=== PATIENT | female | born 1935 | race Hispanic/Latino ===

== ENCOUNTER 2018-08-29 11:17 | Inpatient (IN) ==
[2018-08-29 12:07] LABS: POC INR 1.8 (0.9-1.2); POC Pro Time 20.8 sec (11.9-14.5)
--- NOTE | 2018-08-29 12:08 | XRay Report ---
CLINICAL INFORMATION: Fall, hip pain COMPARISON: None. FINDINGS: A transcervical fracture seen through the right femoral neck. Moderate coxa vera angulation appreciated. Minimal displacement. Mild diffuse osteoporosis noted. Both hips are normal with alignment arthritic change. Mild bilateral SI degeneration noted. Soft tissues are normal IMPRESSION: Acute transcervical fracture - right hip with coxa vera angulation Interpreted and Authenticated by: Valentin Richard 08/29/18
--- NOTE | 2018-08-29 12:10 | XRay Report ---
CLINICAL INFORMATION: Fractured hip COMPARISON: None. FINDINGS: Heart is mildly enlarged. Mediastinum and pulmonary vessels are normal. The lungs are clear. No effusions. IMPRESSION: Mild cardiomegaly - no acute disease Interpreted and Authenticated by: Valentin Richard 08/29/18
--- NOTE | 2018-08-29 12:16 | Cat Scan Report ---
CLINICAL INFORMATION: Prominent fall. Patient on anticoagulation COMPARISON: None. TECHNIQUE: 2.5 mm helical slices were obtained in the skull base to vertex. Following reconstruction, axial reformatted images were reviewed at bone and parenchymal windows. The exam was performed using radiation dose optimization techniques including, but not limited to, automated exposure control, adjustment of the mA and/or kV according to patient size and use of iterative reconstruction technique. FINDINGS: The ventricles, sulci, fissures, and cisterns are symmetrically enlarged compatible with mild age-related atrophy - no subdural hemorrhage or extra-axial fluid collection appreciated. Moderate patchy chronic ischemic changes in the the cerebral white matter are expected for age. There is no intracerebral hemorrhage, mass effect or edema. Bone windows show no fracture or other osseous abnormality. IMPRESSION: Mild atrophy and chronic ischemic changes in deep cerebral white matter - expected for age. No posttraumatic change. Interpreted and Authenticated by: Valentin Richard 08/29/18
--- NOTE | 2018-08-29 12:23 | XRay Report ---
CLINICAL INFORMATION: R/elbow pain, Fall COMPARISON: None. FINDINGS: There is distention of the anterior and posterior extrasynovial fat pads compatible posttraumatic hemarthrosis. This is typically seen with occult fractures. No fracture line identified. Elbow joint normal with alignment IMPRESSION: Moderate posttraumatic hemarthrosis typically associated with an occult fracture. Suggest immobilization and repeat film in 10 days Interpreted and Authenticated by: Valentin Richard 08/29/18
[2018-08-29 12:33] LABS: Basophils # (Auto) 0 K/mcL (0.0-0.3); Basophils % (Auto) 0.3 % (0.0-2.0); Eosinophils # (Auto) 0.3 K/mcL (0.0-0.7); Granulocytes % (Auto) 73.8 % (38.0-78.0); Hemoglobin 11.8 g/dL (12.0-15.0); Lymphocytes # (Auto) 1.4 K/mcL (1.5-4.8); Lymphocytes % (Auto) 15.9 % (15.5-49.0); Mean Cell Volume 93.8 fL (80.0-100.0); Mean Corpuscular HGB Conc 32.7 g/dL (31.0-36.0); Monocytes # (Auto) 0.6 K/mcL (0.1-0.9); Platelet Count 255 K/mcL (140-440); RBC 3.83 M/mcL (4.00-5.20); Red Cell Distribution Width 14.2 % (11.5-14.5)
[2018-08-29] MEDS ORDERED: ONDANSETRON 4 MG/2 ML VIAL IV ONE ×2 (12:44→17:10)
--- NOTE | 2018-08-29 12:48 | Emergency Department Note ---
Fall HPI - General Chief Complaint: Fall Stated Complaint: Fall Time Seen by Provider: 08/29/18 12:31 Source: patient, family, EMS Mode of arrival: EMS Limitations: physical limitation - History of Present Illness HPI Narrative: 80-year-old female in ED with fall causing right hip pain. EMS brought patient in and advised she tripped over a small step landing on her right hip and she has bilateral rotation 9/10 pain, they provided her 75 g of fentanyl which decreased pain to 6/10. Patient does have a history of A. fib and is on diltiazem and Coumadin and vitamins at times. Patient did hit her head without loss of consciousness. She has no neck pain, no back pain and pedal pulses. Patient advises bowel or bladders have been per her normal, no upper respiratory symptoms, no chest pain, no shortness of breath. Patient is visiting from [place] and was on [employer]e ship. Patient ate breakfast at 7:30 fruit and eggs. Patient has had past surgeries left total knee and right shoulder. MD Complaint: fall Onset (ago): minute(s) (30) Fall From: standing Fall Witnessed: yes, by family Place Fall Occurred: other Loss of Consciousness: none Prolonged Down Time?: yes (due to unable to get up) Symptoms Prior to Fall: none Context: tripped/slipped Location of injury: other (hip right) Severity: severe Severity scale (1-10): 9 Quality: sharp, dull, aching Associated symptoms (after fall): Reports: denies - Related Data Home Medications Medication Instructions Recorded Confirmed Diltiazem HCl [Diltiazem 24Hr ER] 180 mg PO DAILY 08/29/18 08/29/18 Warfarin [Coumadin] 4 mg PO DAILY 08/29/18 08/29/18 Previous Rx's Medication Instructions Recorded Acetaminophen [Tylenol] 650 mg PO Q4-6HP PRN tab 09/01/18 Benzocaine/Menthol [Cepacol] 1 kristine PO PRN PRN kristine 09/01/18 Bisacodyl [Dulcolax] [address] Q2-3DAYS PRN supp.rect 09/01/18 Cephalexin [Keflex] 500 mg PO BID #6 cap 09/01/18 HYDROcodone/APAP 5/325MG [[place] 1 tab PO Q4HP PRN #40 tab 09/01/18 5-325Mg] Methocarbamol [Robaxin] 500 mg PO Q6HP PRN #25 tab 09/01/18 Allergies Allergy/AdvReac Type Severity Reaction Status Date / Time No Known Drug Allergies Allergy Verified 08/29/18 11:19 Review of Systems All systems ED: reviewed and negative except as stated. Fall PMH - Past Medical History Medical history: Reports: atrial fibrillation Surgical history ED: Reports: orthopedic, other (left total knee, right shoulder) Psychiatric history: Reports: no psych history - Social History smoking status: Never smoker Drug use: Reports: none Physical Exam Limitations: physical limitation General appearance: alert, in no apparent distress Head: atraumatic, normocephalic, normal inspection Eye: Present: normal appearance, PERRL, EOMI. Absent: conjunctival injection ENT: normal oropharynx, mucous membranes moist, TM's normal bilaterally, normal external ear exam Neck: Present: normal inspection, full ROM, trachea midline. Absent: tenderness, lymphadenopathy Chest: Present: normal inspection, symmetric chest wall rise. Absent: tenderness Respiratory: Present: normal lung sounds bilaterally. Absent: respiratory distress, rales/crackles, wheezes Cardiovascular: Present: irregular rhythm. Absent: systolic murmur, diastolic murmur Abdominal: Present: soft, normal bowel sounds. Absent: distention, tenderness, guarding, rebound, rigidity Extremities: Present: normal capillary refill. Absent: pedal edema Hip/Pelvis: Present: tenderness (right), ecchymosis ( right), external rotation (right), shortening (right) Neurovascular/Tendon: Present: normal capillary refill Neurological: Present: alert, oriented X3. Absent: normal gait Psychiatric: Present: normal affect, normal mood. Absent: depressed, agitated, anxious, flat affect Skin: Present: warm, dry, intact, normal color. Absent: cool, diaphoretic Course Vital Signs Temperature 98.9 F 08/29/18 11:20 Pulse Rate 70 08/29/18 11:20 Respiratory Rate 18 08/29/18 11:20 Blood Pressure 193/88 08/29/18 11:20 Pulse Oximetry (%) 97 08/29/18 11:20 Temperature 98.4 F 09/01/18 14:55 Pulse Rate 68 09/01/18 14:55 Respiratory Rate 16 09/01/18 14:55 Blood Pressure 102/59 09/01/18 14:55 Pulse Oximetry (%) 95 09/01/18 14:55 Fall - MDM Narrative Medical decision making narrative: Patient has received 1 L normal saline, 4 mg Zofran, 1 mg Dilaudid, Henson catheter was placed. consulted with who advised he would do the surgery and requested to have hospitalist admit. Consulted with Dr. Marcus who accepted patient. - Lab Data Lab results reviewed: Yes I reviewed the patient's lab results. Result diagrams: 09/01/18 04:05 09/01/18 04:05 Lab Results 08/29/18 08/29/18 08/29/18 Range/Units 12:01 12:01 12:01 WBC 9.0 (4.5-11.0) K/mcL RBC 3.83 L (4.00-5.20) M/mcL Hgb 11.8 L (12.0-15.0) g/dL Hct 36.0 (36.0-48.0) % MCV 93.8 (80.0-100.0) fL MCH 30.6 (26.0-34.0) pg MCHC 32.7 (31.0-36.0) g/dL RDW 14.2 (11.5-14.5) % Plt Count 255 (140-440) K/mcL MPV 9.0 (7.4-10.4) fL Gran % 73.8 (38.0-78.0) % Lymph % (Auto) 15.9 (15.5-49.0) % [place] % (Auto) 7.0 (1.0-12.0) % Eos % (Auto) 3.0 (0.0-7.0) % Baso % (Auto) 0.3 (0.0-2.0) % Gran # 6.6 (1.8-8.0) K/mcL Lymph # (Auto) 1.4 L (1.5-4.8) K/mcL [place] # (Auto) 0.6 (0.1-0.9) K/mcL Eos # (Auto) 0.3 (0.0-0.7) K/mcL Baso # (Auto) 0 (0.0-0.3) K/mcL POC PT 20.8 H (11.9-14.5) sec POC INR 1.8 H (0.9-1.2) Sodium 138 (133-145) mmol/L Potassium 4.4 (3.3-5.1) mmol/L Chloride 100 (96-108) mmol/L Carbon Dioxide 25 (22-30) mmol/L Anion Gap 13.0 (8-16) BUN 25 H (8-23) mg/dl Creatinine 0.8 (0.6-1.1) mg/dl GFR Calculation 69 Glucose 138 H (70-105) mg/dL Calcium 8.8 (8.6-10.4) mg/dl Total Bilirubin 0.3 (0.0-1.0) mg/dL AST 24 (0-37) U/l ALT 19 (0-40) U/l Alkaline Phosphatase 65 (39-117) U/L Total Protein 7.6 (5.9-8.4) gm/dL Albumin 4.1 (3.2-5.2) gm/dL Globulin 3.5 (2.2-3.7) gm/dL Albumin/Globulin Ratio 1.2 (1.0-2.3) Urine Color Urine Appearance Urine pH (5.0-9.0) Ur Specific [place] (1.000-1.035) Urine Protein (NEG) mg/dL Urine Glucose (UA) (NEG) mg/dL Urine Ketones (NEG) mg/dL Urine Occult Blood (<0.03) mg/dL Urine Nitrate (NEG) Urine Bilirubin (NEG) mg/dL Urine Urobilinogen (NEG) mg/dL Ur Leukocyte Esterase (NEG) /uL Urine RBC (0-1) /hpf Urine WBC (0-4) /hpf Ur Squamous Epith Cells (0-4) /hpf Ur Transition Epith Cell (0-2) /hpf Urine Bacteria (0) /hpf Ur Culture Indicated? 08/29/18 Range/Units 12:55 WBC (4.5-11.0) K/mcL RBC (4.00-5.20) M/mcL Hgb (12.0-15.0) g/dL Hct (36.0-48.0) % MCV (80.0-100.0) fL MCH (26.0-34.0) pg MCHC (31.0-36.0) g/dL RDW (11.5-14.5) % Plt Count (140-440) K/mcL MPV (7.4-10.4) fL Gran % (38.0-78.0) % Lymph % (Auto) (15.5-49.0) % [place]cl[place] % (Auto) (1.0-12.0) % Eos % (Auto) (0.0-7.0) % Baso % (Auto) (0.0-2.0) % Gran # (1.8-8.0) K/mcL Lymph # (Auto) (1.5-4.8) K/mcL [place] # (Auto) (0.1-0.9) K/mcL Eos # (Auto) (0.0-0.7) K/mcL Baso # (Auto) (0.0-0.3) K/mcL POC PT (11.9-14.5) sec POC INR (0.9-1.2) Sodium (133-145) mmol/L Potassium (3.3-5.1) mmol/L Chloride (96-108) mmol/L Carbon Dioxide (22-30) mmol/L Anion Gap (8-16) BUN (8-23) mg/dl Creatinine (0.6-1.1) mg/dl GFR Calculation Glucose (70-105) mg/dL Calcium (8.6-10.4) mg/dl Total Bilirubin (0.0-1.0) mg/dL AST (0-37) U/l ALT (0-40) U/l Alkaline Phosphatase (39-117) U/L Total Protein (5.9-8.4) gm/dL Albumin (3.2-5.2) gm/dL Globulin (2.2-3.7) gm/dL Albumin/Globulin Ratio (1.0-2.3) Urine Color Yellow Urine Appearance Clear Urine pH 8.0 (5.0-9.0) Ur Specific [place] 1.011 (1.000-1.035) Urine Protein 30 A (NEG) mg/dL Urine Glucose (UA) Negative (NEG) mg/dL Urine Ketones Neg (NEG) mg/dL Urine Occult Blood Neg (<0.03) mg/dL Urine Nitrate Pos A (NEG) Urine Bilirubin Neg (NEG) mg/dL Urine Urobilinogen Neg (NEG) mg/dL Ur Leukocyte Esterase Neg (NEG) /uL Urine RBC 1 (0-1) /hpf Urine WBC 5 H (0-4) /hpf Ur Squamous Epith Cells < 1 (0-4) /hpf Ur Transition Epith Cell < 1 (0-2) /hpf Urine Bacteria 0 (0) /hpf Ur Culture Indicated? No - Radiology Data Radiology results reviewed: Yes I reviewed the patient's radiology results. Date of Service: 08/29/18 Procedure(s): CT head/brain wo con Accession Number(s): [id number] CLINICAL INFORMATION: Prominent fall. Patient on anticoagulation COMPARISON: None. TECHNIQUE: 2.5 mm helical slices were obtained in the skull base to vertex. Following reconstruction, axial reformatted images were reviewed at bone and parenchymal windows. The exam was performed using radiation dose optimization techniques including, but not limited to, automated exposure control, adjustment of the mA and/or kV according to patient size and use of iterative reconstruction technique. FINDINGS: The ventricles, sulci, fissures, and cisterns are symmetrically enlarged compatible with mild age-related atrophy - no subdural hemorrhage or extra-axial fluid collection appreciated. Moderate patchy chronic ischemic changes in the the cerebral white matter are expected for age. There is no intracerebral hemorrhage, mass effect or edema. Bone windows show no fracture or other osseous abnormality. IMPRESSION: Mild atrophy and chronic ischemic changes in deep cerebral white matter - expected for age. No posttraumatic change. Interpreted and Authenticated by: Valentin Richard 08/29/18 Date of Service: 08/29/18 Procedure(s): XR chest 1V portable Accession Number(s): [id number] CLINICAL INFORMATION: Fractured hip COMPARISON: None. FINDINGS: Heart is mildly enlarged. Mediastinum and pulmonary vessels are normal. The lungs are clear. No effusions. IMPRESSION: Mild cardiomegaly - no acute disease Interpreted and Authenticated by: Valentin Richard 08/29/18 05 05 Technical Intern: <Electronically signed by Valentin Richard M.D. in OV> 08/29/18 1207 Date of Service: 08/29/18 Procedure(s): XR elbow RT limited 2VW Accession Number(s): [id number] CLINICAL INFORMATION: R/elbow pain, Fall COMPARISON: None. FINDINGS: There is distention of the anterior and posterior extrasynovial fat pads compatible posttraumatic hemarthrosis. This is typically seen with occult fractures. No fracture line identified. Elbow joint normal with alignment IMPRESSION: Moderate posttraumatic hemarthrosis typically associated with an occult fracture. Suggest immobilization and repeat film in 10 days Interpreted and Authenticated by: Valentin Richard 08/29/18 1218 1218 Technical Intern: <Electronically signed by Valentin Richard M.D. in OV> 08/29/18 1220 Date of Service: 08/29/18 Procedure(s): XR hip RT comp 2VW Accession Number(s): [id number] CLINICAL INFORMATION: Fall, hip pain COMPARISON: None. FINDINGS: A transcervical fracture seen through the right femoral neck. Moderate coxa vera angulation appreciated. Minimal displacement. Mild diffuse osteoporosis noted. Both hips are normal with alignment arthritic change. Mild bilateral SI degeneration noted. Soft tissues are normal IMPRESSION: Acute transcervical fracture - right hip with coxa vera angulation Interpreted and Authenticated by: Valentin Richard 08/29/18 1202 1202 Technical Intern: <Electronically signed by Valentin Richard M.D. 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
[2018-08-29 12:52] LABS: ALT/SGPT 19 U/l (0-40); AST/SGOT 24 U/l (0-37); Albumin 4.1 gm/dL (3.2-5.2); Albumin/Globulin Ratio 1.2 (1.0-2.3); Alkaline Phosphatase 65 U/L (39-117); Bilirubin,Total 0.3 mg/dL (0.0-1.0); Blood Urea Nitrogen 25 mg/dl (8-23); Calcium 8.8 mg/dl (8.6-10.4); Carbon Dioxide 25 mmol/L (22-30); Chloride 100 mmol/L (96-108); Globulin 3.5 gm/dL (2.2-3.7); Glomerular Filtration Rate 69; Glucose 138 mg/dL (70-105); Potassium 4.4 mmol/L (3.3-5.1); Sodium 138 mmol/L (133-145)
[2018-08-29] MEDS: HYDROmorphone 2 MG/ML VIAL IV PRN ×2 (12:57→14:20)
[2018-08-29 13:28] LABS: Appearance,Urine CLEAR; Bacteria,Urine 0 /hpf (0); Bilirubin,Urine NEG (NEG); Color,Urine YELLOW; Culture Indicated,Urine NO; Glucose,Urine (UA) NEGATIVE (NEG); Ketones,Urine NEG (NEG); Leukocyte Esterase,Urine NEG /uL (NEG); Nitrate,Urine POS (NEG); Protein,Urine 30 mg/dL (NEG); Specific Gravity,Urine 1.011 (1.000-1.035); Urine Blood NEG mg/dL (<0.03); Urine RBC 1 /hpf (0-1); Urine Squamous Epithelial Cell < 1 /hpf (0-4); Urine Transitional Epi Cells < 1 /hpf (0-2); Urine WBC 5 /hpf (0-4); Urobilinogen,Urine NEG (NEG)
--- NOTE | 2018-08-29 13:44 | Internal Med History&Physical ---
Medical - H&P: [facility] Patient information: Note initiated : 08/29/18 at 1:40 pm Service Date, if different from initiated Date: [] Patient: Emi Grissom a 80 y/o F admitted on for Fall. Chief Complaint: [] Chief complaint: Right hip pain History of present illness: Ms. Grissom is a 80 year old F was visiting [place] on a cruise when she tripped and bathroom and fell sustaining injury to her right hip. Initial evaluation in the ER revealed right hip fracture. Dr. Nash orthopedics were consulted and requested hospitalist service to admit patient while patient will undergo operative intervention later this evening. Initial work-up in the ER was essentially unremarkable. At the time of evaluation patient is accompanied with her friend Jourdan. She is able to answer most of the questions. She denies lightheadedness dizziness, chest pain or unilateral weakness. She attributes fall to tripping and getting off balance. She denies loss of consciousness. She denies prior similar episodes or falls. She appears very anxious and in pain. She endorses to history of atrial fi brillation but denies history of coronary artery disease, CVA, diabetes or hypertension. She has been fairly healthy and avid skier until she had a left knee replaced. Review of systems A 10 point review of system was performed and is negative except was discussed above Medical - H&P: PMH Medical history: History of atrial fibrillation Anticoagulation on Coumadin Surgical history: Left knee replacement Right shoulder replacement Pertinent family history: CAD father and mother at age 69/61 respectively Social history: Denies smoking or alcoholism Retired and lives in [place] Medical - H&P: Meds Home Medications Medication Instructions Recorded Confirmed Type Diltiazem HCl [Diltiazem ER] 180 mg PO DAILY 08/29/18 08/29/18 History Warfarin [Coumadin] 4 mg PO DAILY 08/29/18 08/29/18 History Allergies Allergy/AdvReac Type Severity Reaction Status Date / Time No Known Drug Allergies Allergy Verified 08/29/18 11:19 Medical - H&P: Exam - Constitutional Vitals: Temp Pulse Resp BP Pulse Ox 98.9 F 81 18 195/78 98 08/29/18 11:20 08/29/18 11:32 08/29/18 11:20 08/29/18 11:32 08/29/18 11:32 General appearance: average body habitus Exam: Alert and oriented and anxious Pupils symmetric oral cavity dry No ear nose discharge Head normocephalic Neck no lymph apathy S1-S2 irregular rhythm, no murmur appreciated Diminished breath sounds bases Abdomen soft nontender Right lower extremity rotated and shortened No joint swelling erythema Skin no suspicious lesion Psych alert cooperative but anxious Neuro nonfocal Medical - H&P: Reslt - Labs CBC & Chem 7: 08/29/18 12:01 08/29/18 12:01 Labs: Short CBC 08/29/18 Range/Units 12:01 WBC 9.0 (4.5-11.0) K/mcL Hgb 11.8 L (12.0-15.0) g/dL Hct 36.0 (36.0-48.0) % Plt Count 255 (140-440) K/mcL BMP 08/29/18 12:01 Sodium 138 Potassium 4.4 Chloride 100 Carbon Dioxide 25 BUN 25 H Creatinine 0.8 Glucose 138 H Calcium 8.8 Liver Function 08/29/18 Range/Units 12:01 Total Bilirubin 0.3 (0.0-1.0) mg/dL AST 24 (0-37) U/l ALT 19 (0-40) U/l Alkaline Phosphatase 65 (39-117) U/L Albumin 4.1 (3.2-5.2) gm/dL Urine 08/29/18 Range/Units 12:55 Urine Color Yellow Urine Appearance Clear Urine pH 8.0 (5.0-9.0) Ur Specific [place] 1.011 (1.000-1.035) Urine Protein 30 A (NEG) mg/dL Urine Glucose (UA) Negative (NEG) mg/dL Medical - H&P: A/P (1) Closed right hip fracture Current visit: Yes Status: Acute * Right hip fracture-inpatient admission/orthopedic consultation for operative intervention. * Pain management continue as needed opioids * Preoperative risk evaluation-based on RCRI [place] [employer] risk stratification patient would be high risk intraoperative/immediate postoperative CVA/ACS in the setting of advanced age however she does not have a history of chronic kidney disease/FL/CHF/CVA or insulin-dependent diabetes. She has a fair baseline functional status with a metabolic equivalent of 5. Surgery and anesthesia specific risks will be addressed by individual care providers. At this time there is no modifiable risk factor and patient may proceed with surgery. Recommend maintaining map during surgery over 65 * History of atrial fibrillation rate controlled on diltiazem. * Anticoagulation for CVA prophylaxis- at this time will be held and will be resumed postoperatively. Current INR 1.8 * Full code Plan * Inpatient admission * Orthopedic consult * Pain management * Hold anticoagulation until surgery
[2018-08-29] MEDS ORDERED: ONDANSETRON 4 MG/2 ML VIAL IV PRN ×5 (14:56→19:48)
[2018-08-29] MEDS ORDERED: HYDROmorphone 2 MG/ML VIAL IV PRN ×2 (14:57→18:05)
[2018-08-29] MEDS ORDERED: 0.9 % SODIUM CHLORIDE 1,000 ML IV SCH ×3 (15:00→19:48)
[2018-08-29] MEDS ORDERED: ACETAMINOPHEN 325 MG TABLET PO PRN ×2 (15:53→19:48)
[2018-08-29] MEDS ORDERED: ACETAMINOPHEN 900 MG/90 ML BOTTLE IV PRN ×2 (15:53→19:48)
[2018-08-29] MEDS ORDERED: HYDROcodone/APAP 5/325MG TABLET PO PRN (15:53)
[2018-08-29] MEDS ORDERED: ceFAZolin 1 GM VIAL IV SCH ×2 (16:15→19:00)
[2018-08-29] MEDS ORDERED: ceFAZolin 2 GM in DEXTROSE 5% IN WATER 50 ML IV SCH (16:15)
--- NOTE | 2018-08-29 16:29 | Consultation ---
DATE OF CONSULTATION: 08/29/2018 REASON FOR CONSULTATION: Right hip fracture. CONSULTING PROVIDER: Adria Marcus M.D. HISTORY OF PRESENT ILLNESS: The patient is an 80-year-old female [place] she fell in the bathroom which resulted in an injury to her right side. She was transported to the emergency department here at [facility] and found to have a right hip fracture. She also had a CT scan of her head which was negative for any acute trauma. The patient only complains of right hip pain and some right knee pain. She feels nauseous from the medication as well. PAST MEDICAL HISTORY: Significant for atrial fibrillation which she is on Coumadin for. PAST SURGICAL HISTORY: She had a left total knee arthroplasty, right total shoulder arthroplasty. ALLERGIES: No known drug allergies. MEDICATIONS: 1. Coumadin. 2. Diltiazem. SOCIAL HISTORY: She resides by herself in [place], [place]. She does have a sister that lives next door, however, she is not healthy. Nontobacco user. REVIEW OF SYSTEMS: A 10-point review of systems otherwise negative as mentioned in HPI. PHYSICAL EXAMINATION: VITAL SIGNS: She is afebrile with 98.9, heart rate 89, blood pressure is 181/75. She is satting 91% on room air. HEAD: Atraumatic. EXTREMITIES: Bilateral upper extremities, left lower extremity are atraumatic. She has no tenderness to palpation about the extremities. They are all warm and perfused and neurovascularly intact. Right lower extremity: hip range of motion was deferred. Her skin is intact with small echymossis over lateral hip. She has no focal tenderness about her knee. She has some dependent edema about the right lower extremity which patient reports has been present for a while now. Her sensation is intact in that extremity, as well as able to plantarflex and dorsiflex the ankle and flex and extend all digits. IMAGING: She has imaging to include imaging of her right hip and AP pelvis demonstrating a complete displaced femoral neck fracture. She does have some peripheral vascular disease also noted with minimal underlying arthritis of the hip joint itself. She had a chest x-ray as well as a CT of her head which is negative for any acute trauma. LABORATORY DATA: Her white count is 9. Her hemoglobin is 11.8. Her hematocrit is 36.0. Her INR is 1.8. Her BUN is 25 and creatinine 0.8, and glucose is 138. ASSESSMENT AND PLAN: This is an 80-year-old female with a right displaced femoral neck fracture. I discussed treatment options with her and recommendation being for a right hip hemiarthroplasty. I discussed admitting her with the hospitalist who sees that she is increased risk patient for surgery. However, there is no modifiable risk factors at this time, and it is okay to proceed with surgery. I discussed the risks of the surgery with her, as well as the procedure and recovery which will be a little more difficult given that she resides in [place] and by herself. She understands her options and does want to proceed with surgery. Plan will be for right hip hemiarthroplasty. DLLily:malachi Job ID: [id number] Doc ID: [id number] Maday Nash MD MTDD
[2018-08-29] MEDS ORDERED: SCOPOLAMINE 1 PATCH PATCH TOPICAL ONE (16:46)
[2018-08-29] MEDS ORDERED: PROPOFOL 200 MG/20 ML VIAL IV ONE (17:10)
[2018-08-29] MEDS ORDERED: TRANEXAMIC ACID 1,000 MG/10 ML VIAL IV ONE (17:10)
[2018-08-29] MEDS ORDERED: GLYCOPYRROLATE 0.2 MG/ML VIAL IV ONE (17:10)
[2018-08-29] MEDS ORDERED: MIDAZOLAM 2 MG/2 ML VIAL IV ONE (17:10)
[2018-08-29] MEDS ORDERED: ROPIVACAINE HCL/PF 30 ML VIAL IJ ONE (17:10)
[2018-08-29] MEDS ORDERED: KETAMINE 100 MG/ML ML IV ONE (17:10)
[2018-08-29] MEDS ORDERED: LIDOCAINE HCL/PF 100 MG/5 ML SYRINGE IV ONE (17:10)
[2018-08-29] MEDS ORDERED: fentaNYL 100 MCG/2 ML VIAL IV ONE (17:10)
--- NOTE | 2018-08-29 17:45 | Emergency Department Note ---
ED Note Addendum Note Addendum: I discussed this case with the mid-level provider and agree with the assessment and plan.
[2018-08-29] MEDS ORDERED: GENTAMICIN SULFATE 800 MG/20 ML VIAL IR ONE (17:50)
[2018-08-29] MEDS ORDERED: fentaNYL 100 MCG/2 ML VIAL IV PRN (18:05)
[2018-08-29] MEDS ORDERED: MEPERIDINE 25 MG/ML SYRINGE IV PRN (18:05)
[2018-08-29] MEDS ORDERED: IPRATROPIUM/ALBUTEROL 3 ML AMPUL.NEB NEB PRN (18:05)
[2018-08-29] MEDS ORDERED: METHOCARBAMOL 1,000 MG/10 ML VIAL IV PRN (18:05)
[2018-08-29] MEDS ORDERED: ACETAMINOPHEN 1,000 MG/100 ML BOTTLE IV ONE (18:05)
[2018-08-29] MEDS ORDERED: LACTATED RINGERS 1,000 ML IV SCH ×3 (18:15→19:48)
--- NOTE | 2018-08-29 18:35 | Brief Operative Note ---
Date of procedure: 08/29/18 Pre-op diagnosis: right displaced femoral neck fracture Post-op diagnosis: same Procedure: right hip nataliia arthroplasty Grafts/Implants: Yes (depuy cemented stem size 5, head 48, standard neck, 0 insert) Anesthesia: GLMA Findings: displaced femoral neck fracture Complications: none Surgeon: Maday Nash Linker Up: Lenoard Del Angel Estimated blood loss (cc): 150 Tourniquet Time (Minutes): 0 Specimens Removed/Pathology: none sent Condition: stable Disposition: PACU
[2018-08-29] MEDS ORDERED: BENZOCAINE/MENTHOL 1 LOZENGE PO PRN ×2 (18:48→19:48)
[2018-08-29] MEDS ORDERED: FLEETS ADULT ENEMA PR PRN ×2 (18:48→19:48)
[2018-08-29] MEDS ORDERED: POLYETHYLENE GLYCOL 3350 17 GM PACKET PO PRN (18:48)
[2018-08-29] MEDS ORDERED: METHOCARBAMOL 750 MG TABLET PO PRN (18:48)
[2018-08-29] MEDS ORDERED: BISACODYL 10 MG SUPP.RECT PR PRN ×2 (18:48→19:48)
[2018-08-29] MEDS ORDERED: MAGNESIUM HYDROXIDE 30 ML ORAL.SUSP PO PRN ×2 (18:48→19:48)
[2018-08-29] MEDS ORDERED: METOPROLOL TARTRATE 5 MG/5 ML VIAL IV ONE (19:03)
[2018-08-29] MEDS: METOPROLOL TARTRATE 5 MG/5 ML VIAL IV SCH ×3 (19:06→23:30)
--- NOTE | 2018-08-29 19:42 | XRay Report ---
CLINICAL INFORMATION: Follow-up right hip fracture COMPARISON: Preoperative films 08/29/2018 FINDINGS: Right hip prostheses is anatomically aligned. No osseous abnormality. Soft tissue swelling over the surgical site as expected. IMPRESSION: Negative Interpreted and Authenticated by: Valentin Richard 08/29/18
[2018-08-29] MEDS ORDERED: METHOCARBAMOL 500 MG TABLET PO PRN (19:48)
[2018-08-29] MEDS: LACTATED RINGERS 1,000 ML IV SCH (20:02)
[2018-08-29] MEDS ORDERED: SENNOSIDES/DOCUSATE SODIUM 1 TAB TABLET PO SCH (21:00)
[2018-08-29] MEDS ORDERED: SENNOSIDES 1 TABLET PO SCH (21:00)
[2018-08-29] MEDS ORDERED: WARFARIN 4 MG TABLET PO ONE (21:00)
[2018-08-29] MEDS ORDERED: MELATONIN 3 MG TABLET PO PRN (21:00)
[2018-08-29] MEDS ORDERED: DOCUSATE SODIUM 100 MG CAPSULE PO SCH (21:00)
[2018-08-29] MEDS: SENNOSIDES 1 TABLET PO SCH (21:05)
[2018-08-29] MEDS: DOCUSATE SODIUM 100 MG CAPSULE PO SCH (21:05)
[2018-08-29] MEDS: SENNOSIDES/DOCUSATE SODIUM 1 TAB TABLET PO SCH (21:05)
[2018-08-29] MEDS ORDERED: 0.9 % SODIUM CHLORIDE 10 ML SYRINGE IV SCH (22:00)
[2018-08-29] MEDS: 0.9 % SODIUM CHLORIDE 10 ML SYRINGE IV SCH (22:14)
[2018-08-29] MEDS: HYDROcodone/APAP 5/325MG TABLET PO PRN (22:32)
[2018-08-29] MEDS ORDERED: 0.9 % SODIUM CHLORIDE 250 ML IV SCH (23:45)
[2018-08-29] MEDS ORDERED: DILTIAZEM HCL 180 MG PO SCH (23:56)
[2018-08-30] MEDS ORDERED: hydrALAZINE 20 MG/ML VIAL IV SCH
[2018-08-30] MEDS: ceFAZolin 1 GM VIAL IV SCH ×2 (01:15→08:43)
[2018-08-30] MEDS ORDERED: DILTIAZEM 180 MG CAP.XL.24H PO ONE (01:32)
[2018-08-30] MEDS: 0.9 % SODIUM CHLORIDE 10 ML SYRINGE IV SCH ×3 (04:51→22:14)
[2018-08-30] MEDS: HYDROcodone/APAP 5/325MG TABLET PO PRN ×4 (05:58→21:18)
[2018-08-30] MEDS: LACTATED RINGERS 1,000 ML IV SCH (07:09)
[2018-08-30] MEDS: DILTIAZEM 180 MG CAP.XL.24H PO SCH (08:42)
[2018-08-30] MEDS: DOCUSATE SODIUM 100 MG CAPSULE PO SCH ×2 (08:42→21:17)
[2018-08-30] MEDS: MULTIVIT,THER IRON,CA,FA & MIN 1 TABLET PO SCH (08:43)
[2018-08-30 08:47] LABS: Hematocrit 29.7 % (36.0-48.0); Hemoglobin 9.9 g/dL (12.0-15.0); Mean Cell Volume 92.7 fL (80.0-100.0); Mean Corpuscular HGB Conc 33.4 g/dL (31.0-36.0); Platelet Count 214 K/mcL (140-440); RBC 3.21 M/mcL (4.00-5.20); Red Cell Distribution Width 13.9 % (11.5-14.5); WBC 7.9 K/mcL (4.5-11.0)
[2018-08-30] MEDS ORDERED: MULTIVIT,THER IRON,CA,FA & MIN 1 TABLET PO SCH (09:00)
[2018-08-30 09:05] LABS: INR 1.7 (0.9-1.1); Prothrombin Time 20.2 sec (11.9-14.5)
[2018-08-30 09:12] LABS: ALT/SGPT 16 U/l (0-40); AST/SGOT 31 U/l (0-37); Albumin 3.6 gm/dL (3.2-5.2); Albumin/Globulin Ratio 1.3 (1.0-2.3); Alkaline Phosphatase 57 U/L (39-117); Bilirubin,Direct < 0.2 mg/dL (0.0-0.3); Bilirubin,Total 0.6 mg/dL (0.0-1.0); Blood Urea Nitrogen 18 mg/dl (8-23); Calcium 8.3 mg/dl (8.6-10.4); Carbon Dioxide 23 mmol/L (22-30); Chloride 97 mmol/L (96-108); Globulin 2.8 gm/dL (2.2-3.7); Glomerular Filtration Rate 59; Glucose 94 mg/dL (70-105); Lactate Dehydrogenase 246 U/L (94-250); Magnesium 1.9 mg/dL (1.6-2.5); Phosphorous 3.2 mg/dL (2.7-4.5); Potassium 3.8 mmol/L (3.3-5.1); Sodium 133 mmol/L (133-145); Triglycerides 85 mg/dl (<150); Uric Acid 5.1 mg/dL (2.5-8.0)
--- NOTE | 2018-08-30 09:29 | Orthopedic Progress Note ---
Subjective Patient information: Note initiated : 08/30/18 at 9:23 am Service Date, if different from initiated Date: [] Patient: Emi Grissom 83 y/o F admitted on 08/29/18 for Fall. Chief Complaint: [] Interval history: POD 1 s/p R hip nataliia arthroplasty. no acute events overnight. Pain is controlled and better than yesterday. She does complain of knee pain this AM on the right side. Denies chest pain or shortness of breath. She has been up to chair but not ambulated for a significant distance yet. Objective Vital signs: Vital Signs Temp Pulse Pulse Resp BP BP BP 08/30/18 07:00 98.6 F 16 165/60 08/30/18 04:50 98.5 F 93 H 16 161/74 08/30/18 04:15 75 16 130/62 08/30/18 03:45 98.8 F 88 18 146/69 08/30/18 03:35 98.6 F 65 18 153/69 08/30/18 03:29 98.6 F 87 16 155/80 08/30/18 03:15 98.9 F 88 16 164/80 08/29/18 23:00 102 H 18 163/74 08/29/18 22:00 78 175/91 08/29/18 21:30 66 176/83 08/29/18 21:00 62 175/76 08/29/18 20:30 64 162/74 08/29/18 20:15 58 L 155/68 08/29/18 20:00 97.7 F 54 L 18 177/71 08/29/18 19:35 57 L 15 167/78 08/29/18 19:30 98.4 F 59 L 15 173/73 08/29/18 19:15 98.8 F 65 17 191/125 08/29/18 19:05 88 18 207/142 08/29/18 18:55 96 H 20 208/111 08/29/18 18:50 95 H 21 190/124 08/29/18 18:45 97.3 F 89 14 172/99 08/29/18 15:38 97.5 F 89 16 181/75 08/29/18 15:05 74 15 178/95 08/29/18 14:59 98.8 F 95 H 08/29/18 14:55 98.9 F 89 08/29/18 14:50 99.0 F 90 08/29/18 14:46 99.1 F H 89 178/63 08/29/18 14:45 99.1 F H 89 08/29/18 14:34 99.1 F H 95 H 08/29/18 14:31 99.1 F H 92 H 195/75 08/29/18 14:16 99.1 F H 87 181/116 08/29/18 14:14 99.1 F H 88 08/29/18 14:06 99.0 F 96 H 197/75 08/29/18 14:05 99.0 F 92 H 08/29/18 14:02 99.0 F 90 202/87 08/29/18 14:01 99.0 F 85 08/29/18 14:00 99.0 F 08/29/18 13:56 98.9 F 08/29/18 13:50 98.9 F 08/29/18 13:49 98.8 F 08/29/18 11:32 81 195/78 08/29/18 11:31 57 L 08/29/18 11:26 64 193/88 08/29/18 11:20 98.9 F 70 18 193/88 Pulse Ox 08/30/18 07:00 92 08/30/18 04:50 92 08/30/18 04:15 94 08/30/18 03:45 90 08/30/18 03:35 92 08/30/18 03:29 93 08/30/18 03:15 93 08/29/18 23:00 91 08/29/18 22:00 95 08/29/18 21:30 92 08/29/18 21:00 95 08/29/18 20:30 92 08/29/18 20:15 91 08/29/18 20:00 91 08/29/18 19:35 98 08/29/18 19:30 94 08/29/18 19:15 94 08/29/18 19:05 99 08/29/18 18:55 99 08/29/18 18:50 99 08/29/18 18:45 97 08/29/18 15:38 91 08/29/18 15:05 96 08/29/18 14:59 95 08/29/18 14:55 92 08/29/18 14:50 91 08/29/18 14:46 90 08/29/18 14:45 91 08/29/18 14:34 92 08/29/18 14:31 90 08/29/18 14:16 98 08/29/18 14:14 96 08/29/18 14:06 94 08/29/18 14:05 97 08/29/18 14:02 92 08/29/18 14:01 94 08/29/18 14:00 08/29/18 13:56 08/29/18 13:50 08/29/18 13:49 08/29/18 11:32 98 08/29/18 11:31 95 08/29/18 11:26 97 08/29/18 11:20 97 Intake and Output 08/29/18 08/30/18 08/30/18 21:59 05:59 13:59 Intake Total 1300 1220 1414 Output Total 950 700 Balance 902 082 4195 Intake: IV 1300 834 Lactated Ringers 1,000 ml @ 75 1200 834 mls/hr IV .[id number] [facility] Rx#: [id number] Oral 1220 580 Output: Urine Catheter Amount 800 700 Estimated Blood Loss 150 Other: Urine Appearance Clear Clear Sediment Uretheral (Alarcon) Clear Urine Color Straw Dark Yellow Straw Uretheral (Alarcon) Straw Urine Odor Strong Uretheral (Alarcon) Normal Weight 141 lb Intake & Output: Intake & Output 08/29/18 08/30/18 08/30/18 21:59 05:59 13:59 Intake Total 1300 1220 1414 Output Total 950 700 Balance 627 005 1303 Weight 141 lb Intake: IV 1300 834 Lactated Ringers 1,000 ml @ 75 1200 834 mls/hr IV .[id number] [facility] Rx#: [id number] Oral 1220 580 Output: Urine Catheter Amount 800 700 Estimated Blood Loss 150 Other: Urine Appearance Clear Clear Sediment Uretheral (Alarcon) Clear Urine Color Straw Dark Yellow Straw Uretheral (Alarcon) Straw Urine Odor Strong Uretheral (Alarcon) Normal Dressing: Yes clean, Yes dry, Yes intact Weight bearing status: full Neurological exam IM: Yes neurovascular intact Extremities exam IM: Yes Foot pink and warm - Labs CBC & BMP: 08/30/18 06:44 08/30/18 06:44 Labs: Orthopedic Labs 08/30/18 08/29/18 06:44 12:01 POC PT 20.8 H PT 20.2 H POC INR 1.8 H INR 1.7 H 08/30/18 08/29/18 06:44 12:01 Hgb 9.9 L 11.8 L Hct 29.7 L 36.0 Assessment and Plan - Narrative A/P Narrative: POD 1 status post right hip nataliia arthroplasty for displaced femoral neck fracture -- Weight bearing as tolerated with posterior hip precautions x6 weeks. ---- PT/OT -- Oral pain control -- Resume home coumadin today ---- h/h reviewed will likely reach [place] tomorrow. -- d/c alarcon and stop IV fluids -- tolerating oral diet -- Prophy: IS, foot pumps, coumadin, ambulation -- Dispo: resides in [place] alone. Will have licensed clinical social worker discuss options with patient and her son. Possible that she needs short term acute rehab up discharge. Will see how she does with therapy.
--- NOTE | 2018-08-30 09:39 | Internal Med Progress Note ---
Medical - PN: Subj Patient information: Note initiated : 08/30/18 at 9:34 am Service Date, if different from initiated Date: [] Patient: Emi Grissom 83 y/o F admitted on 08/29/18 for Fall. Chief Complaint: [] Interval history: Ms. Grissom is a 80 year old F was visiting [place] on a cruise when she tripped and bathroom and fell sustaining injury to her right hip. Initial evaluation in the ER revealed right hip fracture. Dr. Nash orthopedics were consulted and requested hospitalist service to admit patient while patient will undergo operative intervention later this evening. Initial work-up in the ER was essentially unremarkable. At the time of evaluation patient is accompanied with her friend Jourdan. She is able to answer most of the questions. She denies lightheadedness dizziness, chest pain or unilateral weakness. She attributes fall to tripping and getting off balance. She denies loss of consciousness. She denies prior similar episodes or falls. She appears very anxious and in pain. She endorses to history of atrial fibrillation but denies history of coronary artery disease, CVA, diabetes or hypertension. She has been fairly healthy and avid skier until she had a left knee replaced. 08/30-patient doing remarkably well postop. Improved postoperative pain. Will undergo PT OT. Per orthopedics patient will require SNF transfer. No family at bedside. Minimally anxious. Start regular diet. Overnight systolics around 160 requiring hydralazine. Restart Coumadin/diltiazem. - Constitutional Vitals: Vital Signs Temp Pulse Resp BP Pulse Ox 98.6 F 93 H 16 165/60 92 08/30/18 07:00 08/30/18 04:50 08/30/18 07:00 08/30/18 07:00 08/30/18 07:00 Period Temp Pulse Resp BP Sys/Reed Pulse Ox Last 24 Hr 97.3 F-99.1 F 54-102 14-21 130-208/60-142 90-99 Intake and Output 08/29/18 08/30/18 08/30/18 21:59 05:59 13:59 Intake Total 1300 1220 1414 Output Total 950 700 50 Balance 532 521 6023 Weight 141 lb Intake & Output: Intake & Output 08/29/18 08/30/18 08/30/18 21:59 05:59 13:59 Intake Total 1300 1220 1414 Output Total 950 700 50 Balance 753 842 3845 Weight 141 lb Intake: IV 1300 834 Lactated Ringers 1,000 ml @ 75 1200 834 mls/hr IV .[id number] [facility] Rx#: [id number] Oral 1220 580 Output: Urine Catheter Amount 800 700 Emesis 50 Estimated Blood Loss 150 Other: Urine Appearance Clear Clear Sediment Uretheral (Henson) Clear Urine Color Straw Dark Yellow Straw Uretheral (Henson) Straw Urine Odor Strong Uretheral (Henson) Normal General appearance: no acute distress Exam: Alert oriented nonlabored breathing Regular rhythm Right hip postoperative site no induration or swelling, covered in dressing No anxiety Medical - PN: Obj Da - Labs CBC & Chem 7: 08/30/18 06:44 08/30/18 06:44 Labs: Abnormal Lab Results 08/30/18 08/30/18 08/30/18 06:44 06:44 06:44 RBC 3.21 L Hgb 9.9 L Hct 29.7 L Lymph # (Auto) POC PT PT 20.2 H POC INR INR 1.7 H BUN Glucose Calcium 8.3 L Urine Protein Urine Nitrate Urine WBC 08/29/18 08/29/18 08/29/18 12:55 12:01 12:01 RBC Hgb Hct Lymph # (Auto) POC PT 20.8 H PT POC INR 1.8 H INR BUN 25 H Glucose 138 H Calcium Urine Protein 30 A Urine Nitrate Pos A Urine WBC 5 H 08/29/18 12:01 RBC 3.83 L Hgb 11.8 L Hct Lymph # (Auto) 1.4 L POC PT PT POC INR INR BUN Glucose Calcium Urine Protein Urine Nitrate Urine WBC Meds: Medications Acetaminophen (Tylenol) 650 mg PO Q4-6HP PRN PRN Reason: PAIN/FEVER > 101 Hydrocodone Bitart/Acetaminophen ([place] 5/325mg) 0 tab PO Q4HP PRN PRN Reason: PAIN LEVEL 3-6 Last Admin: 08/30/18 05:58 Dose: 2 tab Documented by: Bisacodyl (Dulcolax) [address] Q2-3DAYS PRN PRN Reason: Constipation Diltiazem HCl (Cardizem Cd) [address] [facility] Last Admin: 08/30/18 08:42 Dose: 180 mg Documented by: Docusate Sodium (Colace) [address] [facility] Last Admin: 08/30/18 08:42 Dose: 100 mg Documented by: Hydralazine HCl (Apresoline) 10 - 20 mg IV Q4 PRN PRN Reason: Hypertension Acetaminophen (Ofirmev) 900 mg in 90 mls @ 180 mls/hr IV Q6HP PRN PRN Reason: PAIN/FEVER > 101 Sodium Chloride (Sodium Chloride 0.9%) 250 mls @ 20 mls/hr IV .[id number] [facility] Stop: 08/30/18 12:14 Last Admin: 08/30/18 03:41 Dose: 20 mls/hr Documented by: Iron Carb/Multivit/Coke Crusher Operator/Folic Acid (Multivitamin W/Minerals) [address] [facility] Last Admin: 08/30/18 08:43 Dose: 1 tab Documented by: Magnesium Hydroxide (Milk Of Magnesia) 30 ml PO BIDP PRN PRN Reason: Constipation Methocarbamol (Robaxin) 500 mg PO Q6HP PRN PRN Reason: Muscle Spasm Ondansetron HCl (Zofran) 4 mg IV Q4-6HP PRN PRN Reason: Nausea Polyethylene Glycol (Miralax) 17 gm PO DAILYP PRN PRN Reason: Constipation Senna (Senokot) 2 tab PO [facility] Last Admin: 08/29/18 21:05 Dose: 2 tab Documented by: Senna/Docusate Sodium (Senna Plus Tablet) 1 tab PO [facility] Last Admin: 08/29/18 21:05 Dose: 1 tab Documented by: Sodium Biphosphate/Sodium Phosphate (Fleets Adult) [address] Q3-4DAYS PRN PRN Reason: Constipation Sodium Chloride (Saline Flush) [address] [facility] Last Admin: 08/30/18 04:51 Dose: Not Given Documented by: Throat Lozenges (Cepacol) 1 lozenge PO PRN PRN PRN Reason: Sore Throat Warfarin Sodium (Coumadin Per Pharmacy) [address] [facility] Medical - PN: A/P - Time Spent With Patient Total time spent is greater than 50% in coordination of care (as documented) at patient's floor/unit and/or counseling patient: 25 - 35 minutes (1) Closed right hip fracture Status: Acute Assessment and plan: * Right hip fracture-doing well. Continue management per orthopedics. Postop day 1. Continue PT OT. * Pain management stable on as needed opioids * Suboptimally controlled hypertension-no prior history of hypertension. Likely exacerbated by pain and anxiety continue as needed hydralazine. However has remained persistently elevated preop, Intra-Op and postoperative period. Start low-dose beta-yanely, continue diltiazem * History of atrial fibrillation rate controlled on diltiazem. * Anticoagulation for CVA prophylaxis-restart Coumadin * Full code Plan * Postop management per orthopedics * Low-dose beta-yanely * Coumadin dosing based on INR * Continue pain management * Nutrition support/aggressive PT OT * Orthopedics recommends SNF transfer Current Visit: Yes Medical - PN: Qual - VTE Deep Vein Thrombosis/Pulmonary Embolism Present on Admission: No
[2018-08-30 09:44] LABS: Band Neutrophils % 19 % (0-10); Eosinophils % (Manual) 1 % (0-7); Hypochromasia FEW (NONE SEEN); Lymphocytes % 12 % (15-49); Monocytes % (Manual) 7 % (1-12); Platelet Estimate NORMAL (NORMAL); RBC Morphology ABNORM (NORMAL); Reactive Lymphocytes 1 % (0-2); Segmented Neutrophils % 60 % (38-78)
--- NOTE | 2018-08-30 10:00 | XRay Report ---
CLINICAL INFORMATION: right knee pain COMPARISON: None. 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 No osseous abnormalities. Soft tissues normal. 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
[2018-08-30] MEDS: METOPROLOL TARTRATE 25 MG TABLET PO SCH ×2 (10:14→21:17)
[2018-08-30] MEDS: POLYETHYLENE GLYCOL 3350 17 GM PACKET PO PRN (13:43)
[2018-08-30] MEDS ORDERED: WARFARIN 4 MG TABLET PO ONE (14:00)
[2018-08-30] MEDS: SENNOSIDES/DOCUSATE SODIUM 1 TAB TABLET PO SCH (21:17)
[2018-08-30] MEDS: SENNOSIDES 1 TABLET PO SCH (21:17)
[2018-08-30] MEDS ORDERED: hydrALAZINE 20 MG/ML VIAL IV PRN (23:05)
[2018-08-31] MEDS: HYDROcodone/APAP 5/325MG TABLET PO PRN ×3 (02:54→17:01)
[2018-08-31] MEDS: 0.9 % SODIUM CHLORIDE 10 ML SYRINGE IV SCH ×3 (04:17→20:32)
[2018-08-31 05:07] LABS: Hematocrit 27.8 % (36.0-48.0); Hemoglobin 9.4 g/dL (12.0-15.0); Mean Cell Volume 92.7 fL (80.0-100.0); Mean Corpuscular HGB Conc 33.7 g/dL (31.0-36.0); Mean Platelet Volume 8.8 fL (7.4-10.4); Platelet Count 200 K/mcL (140-440); Red Cell Distribution Width 13.8 % (11.5-14.5); WBC 10.6 K/mcL (4.5-11.0)
[2018-08-31 05:38] LABS: INR 2.1 (0.9-1.1); Prothrombin Time 23.5 sec (11.9-14.5)
[2018-08-31 05:57] LABS: ALT/SGPT 13 U/l (0-40); AST/SGOT 33 U/l (0-37); Albumin 3.3 gm/dL (3.2-5.2); Alkaline Phosphatase 59 U/L (39-117); Bilirubin,Direct 0.2 mg/dL (0.0-0.3); Bilirubin,Total 0.8 mg/dL (0.0-1.0); Blood Urea Nitrogen 20 mg/dl (8-23); Calcium 8.4 mg/dl (8.6-10.4); Carbon Dioxide 22 mmol/L (22-30); Chloride 99 mmol/L (96-108); Globulin 3.3 gm/dL (2.2-3.7); Glomerular Filtration Rate 59; Glucose 127 mg/dL (70-105); Lactate Dehydrogenase 295 U/L (94-250); Magnesium 2.1 mg/dL (1.6-2.5); Phosphorous 3.2 mg/dL (2.7-4.5); Potassium 4.1 mmol/L (3.3-5.1); Sodium 134 mmol/L (133-145); Triglycerides 73 mg/dl (<150); Uric Acid 6.1 mg/dL (2.5-8.0)
[2018-08-31 06:05] LABS: Band Neutrophils % 3 % (0-10); Lymphocytes % 11 % (15-49); Monocytes % (Manual) 6 % (1-12); Platelet Estimate NORMAL (NORMAL); RBC Morphology NORMAL (NORMAL); Segmented Neutrophils % 80 % (38-78)
[2018-08-31] MEDS: POLYETHYLENE GLYCOL 3350 17 GM PACKET PO PRN (07:08)
--- NOTE | 2018-08-31 07:15 | Orthopedic Progress Note ---
Subjective Patient information: Note initiated : 08/31/18 at 7:13 am Service Date, if different from initiated Date: [] Patient: Emi Grissom 83 y/o F admitted on 08/29/18 for Fall. Chief Complaint: [] Interval history: Overall doing ok. Pain is controlled but patient apprehensive regarding walking and complains of her right elbow being painful with the walker. The knee pain is improving. Denies chest pain/shortness of breath. Did not meet due to void after alarcon d/c yesterday and needed a in and out cath. Objective Vital signs: Vital Signs Temp Pulse Resp BP Pulse Ox 08/31/18 06:53 98.7 F 16 143/69 92 08/31/18 03:26 99.2 F H 75 20 138/65 92 08/31/18 00:15 98.4 F 64 22 136/60 91 08/30/18 21:22 73 08/30/18 20:00 98.5 F 68 18 117/48 91 08/30/18 15:41 97.9 F 16 128/58 96 08/30/18 11:35 99.4 F H 20 151/70 92 Intake and Output 08/30/18 08/31/18 08/31/18 21:59 05:59 13:59 Intake Total 350 350 Output Total 450 Balance 350 -100 Intake: Oral 350 350 Output: Urine Catheter Amount 450 Uretheral (Alarcon) 450 Other: Meal Dinner Percent of Meal Consumed 10 Urine Appearance Uretheral (Alarcon) Clear Urine Color Uretheral (Alarcon) Light Nay Weight 144 lb Intake & Output: Intake & Output 08/30/18 08/31/18 08/31/18 21:59 05:59 13:59 Intake Total 350 350 Output Total 450 Balance 350 -100 Weight 144 lb Intake: Oral 350 350 Output: Urine Catheter Amount 450 Uretheral (Alarcon) 450 Other: Meal Dinner Percent of Meal Consumed 10 Urine Appearance Uretheral (Alarcon) Clear Urine Color Uretheral (Alarcon) Light Nay Incision: Yes clean and dry Incision clean and dry: No Dressing: Yes clean, Yes dry, Yes intact Weight bearing status: full Neurological exam IM: Yes neurovascular intact Extremities exam IM: Yes Foot pink and warm - Labs CBC & BMP: 08/31/18 04:15 08/31/18 04:15 Labs: Orthopedic Labs 08/31/18 08/30/18 08/29/18 04:15 06:44 12:01 POC PT 20.8 H PT 23.5 H 20.2 H POC INR 1.8 H INR 2.1 H 1.7 H 08/31/18 08/30/18 08/29/18 04:15 06:44 12:01 Hgb 9.4 L 9.9 L 11.8 L Hct 27.8 L 29.7 L 36.0 Assessment and Plan - Narrative A/P Narrative: POD 2 status post right hip nataliia arthroplasty for displaced femoral neck fracture -- Weight bearing as tolerated with posterior hip precautions x6 weeks. ---- PT/OT, did ambulate yesterday with walker but has pain in the right elbow. Will try a platform walker today. The elbow is bruised but range of motion is not painful, smooth and full about the elbow. -- Oral pain control -- INR 2 this AM on coumadin ---- h/h satable -- Has to void today- encouraged to ambulate -- tolerating oral diet -- Prophy: IS, foot pumps, coumadin, ambulation -- Dispo: Discussed with oncology social worker today and PT but will likely benefit from SNF.
[2018-08-31] MEDS: DILTIAZEM 180 MG CAP.XL.24H PO SCH (08:06)
[2018-08-31] MEDS: DOCUSATE SODIUM 100 MG CAPSULE PO SCH ×2 (08:06→20:32)
[2018-08-31] MEDS: METOPROLOL TARTRATE 25 MG TABLET PO SCH ×2 (08:06→20:31)
[2018-08-31] MEDS: MULTIVIT,THER IRON,CA,FA & MIN 1 TABLET PO SCH (08:06)
--- NOTE | 2018-08-31 09:29 | Internal Med Progress Note ---
Medical - PN: Subj Patient information: Note initiated : 08/31/18 at 9:26 am Service Date, if different from initiated Date: [] Patient: Emi Grissom 83 y/o F admitted on 08/29/18 for Fall. Chief Complaint: [] Interval history: Ms. Grissom is a 80 year old F was visiting [place] on a cruise when she tripped and bathroom and fell sustaining injury to her right hip. Initial evaluation in the ER revealed right hip fracture. Dr. Nash orthopedics were consulted and requested hospitalist service to admit patient while patient will undergo operative intervention later this evening. Initial work-up in the ER was essentially unremarkable. At the time of evaluation patient is accompanied with her friend Jourdan. She is able to answer most of the questions. She denies lightheadedness dizziness, chest pain or unilateral weakness. She attributes fall to tripping and getting off balance. She denies loss of consciousness. She denies prior similar episodes or falls. She appears very anxious and in pain. She endorses to history of atrial fibrillation but denies history of coronary artery disease, CVA, diabetes or hypertension. She has been fairly healthy and avid skier until she had a left knee replaced. 08/30-patient doing remarkably well postop. Improved postoperative pain. Will undergo PT OT. Per orthopedics patient will require SNF transfer. No family at bedside. Minimally anxious. Start regular diet. Overnight systolics around 160 requiring hydralazine. Restart Coumadin/diltiazem. 08/31-patient doing well. No overnight events. Ongoing physical therapy. Continue diet and nutrition support. Anticipate SNF transfer in 24 hours for continued posthospitalization and postoperative rehab. No family at bedside. No concerns expressed to nursing staff. INR 2.1. Urine culture gram-negative daisha - Constitutional Vitals: Vital Signs Temp Pulse Resp BP Pulse Ox 98.7 F 75 16 143/69 92 08/31/18 06:53 08/31/18 03:26 08/31/18 06:53 08/31/18 06:53 08/31/18 06:53 Period Temp Pulse Resp BP Sys/Reed Pulse Ox Last 24 Hr 97.9 F-99.4 F 64-75 16-22 117-151/48-70 91-96 Intake and Output 08/30/18 08/31/1819 21:59 05:59 13:59 Intake Total 350 350 Output Total 450 Balance 350 -100 Weight 144 lb Intake & Output: Intake & Output 08/30/18 08/31/18 08/31/18 21:59 05:59 13:59 Intake Total 350 350 Output Total 450 Balance 350 -100 Weight 144 lb Intake: Oral 350 350 Output: Urine Catheter Amount 450 Uretheral (Henson) 450 Other: Meal Dinner Percent of Meal Consumed 10 Urine Appearance Uretheral (Henson) Clear Urine Color Uretheral (Henson) Light Nay General appearance: no acute distress Exam: Alert oriented Nonlabored breathing No anxiety Nondistended abdomen No fever chills Medical - PN: Obj Da - Labs CBC & Chem 7: 08/31/18 04:15 08/31/18 04:15 Labs: Abnormal Lab Results 08/31/18 08/31/18 08/31/18 04:15 04:15 04:15 RBC 3.00 L Hgb 9.4 L Hct 27.8 L Lymph # (Auto) Seg Neutrophils % 80 H Band Neutrophils % Lymphocytes % 11 L RBC Morphology Hypochromasia POC PT PT 23.5 H POC INR INR 2.1 H BUN Glucose 127 H Calcium 8.4 L Lactate Dehydrogenase 295 H Urine Protein Urine Nitrate Urine WBC 08/30/18 08/30/18 08/30/18 06:44 06:44 06:44 RBC 3.21 L Hgb 9.9 L Hct 29.7 L Lymph # (Auto) Seg Neutrophils % Band Neutrophils % 19 H Lymphocytes % 12 L RBC Morphology Abnorm A Hypochromasia Few A POC PT PT 20.2 H POC INR INR 1.7 H BUN Glucose Calcium 8.3 L Lactate Dehydrogenase Urine Protein Urine Nitrate Urine WBC 08/29/18 08/29/18 08/29/18 12:55 12:01 12:01 RBC Hgb Hct Lymph # (Auto) Seg Neutrophils % Band Neutrophils % Lymphocytes % RBC Morphology Hypochromasia POC PT 20.8 H PT POC INR 1.8 H INR BUN 25 H Glucose 138 H Calcium Lactate Dehydrogenase Urine Protein 30 A Urine Nitrate Pos A Urine WBC 5 H 08/29/18 12:01 RBC 3.83 L Hgb 11.8 L Hct Lymph # (Auto) 1.4 L Seg Neutrophils % Band Neutrophils % Lymphocytes % RBC Morphology Hypochromasia POC PT PT POC INR INR BUN Glucose Calcium Lactate Dehydrogenase Urine Protein Urine Nitrate Urine WBC Meds: Medications Acetaminophen (Tylenol) 650 mg PO Q4-6HP PRN PRN Reason: PAIN/FEVER > 101 Hydrocodone Bitart/Acetaminophen ([place] 5/325mg) 0 tab PO Q4HP PRN PRN Reason: PAIN LEVEL 3-6 Last Admin: 08/31/18 02:54 Dose: 1 tab Documented by: Bisacodyl (Dulcolax) 10 mg [place] Q2-3DAYS PRN PRN Reason: Constipation Diltiazem HCl (Cardizem Cd) 180 mg PO DAILY [facility] Last Admin: 08/31/18 08:06 Dose: 180 mg Documented by: Docusate Sodium (Colace) 100 mg PO BID [facility] Last Admin: 08/31/18 08:06 Dose: 100 mg Documented by: Hydralazine HCl (Apresoline) 10 - 20 mg IV Q4 PRN PRN Reason: Hypertension Acetaminophen (Ofirmev) 900 mg in 90 mls @ 180 mls/hr IV Q6HP PRN PRN Reason: PAIN/FEVER > 101 Iron Carb/Multivit/Door Attendant/Folic Acid (Multivitamin W/Minerals) 1 tab PO DAILY [facility] Last Admin: 08/31/18 08:06 Dose: 1 tab Documented by: Magnesium Hydroxide (Milk Of Magnesia) 30 ml PO BIDP PRN PRN Reason: Constipation Methocarbamol (Robaxin) 500 mg PO Q6HP PRN PRN Reason: Muscle Spasm Metoprolol Tartrate (Lopressor) 12.5 mg PO BID [facility] Last Admin: 08/31/18 08:06 Dose: 12.5 mg Documented by: Ondansetron HCl (Zofran) 4 mg IV Q4-6HP PRN PRN Reason: Nausea Polyethylene Glycol (Miralax) 17 gm PO DAILYP PRN PRN Reason: Constipation Last Admin: 08/31/18 07:08 Dose: 17 gm Documented by: Senna (Senokot) 2 tab PO [facility] Last Admin: 08/30/18 21:17 Dose: 2 tab Documented by: Senna/Docusate Sodium (Senna Plus Tablet) 1 tab PO [facility] Last Admin: 08/30/18 21:17 Dose: 1 tab Documented by: Sodium Biphosphate/Sodium Phosphate (Fleets Adult) 1 dose [place] Q3-4DAYS PRN PRN Reason: Constipation Sodium Chloride (Saline Flush) 10 ml IV Q8 [facility] Last Admin: 08/31/18 04:17 Dose: 10 ml Documented by: Throat Lozenges (Cepacol) 1 lozenge PO PRN PRN PRN Reason: Sore Throat Warfarin Sodium (Coumadin Per Pharmacy) 1 order PO UD [facility] Medical - PN: A/P - Time Spent With Patient Total time spent is greater than 50% in coordination of care (as documented) at patient's floor/unit and/or counseling patient: 25 - 35 minutes (1) Closed right hip fracture Status: Acute Assessment and plan: * Right hip fracture-postoperative day 2, doing well. Ongoing PT OT. Anticipate SNF transfer in 24 hours. * Pain management stable on as needed opioids * Suboptimally controlled hypertension-clinically improved with addition of beta-yanely. Systolics around 140s. * History of atrial fibrillation rate controlled on diltiazem. * Anticoagulation for CVA prophylaxis-continue Coumadin. INR therapeutic * Full code Plan * Continue PT OT/postoperative management per orthopedics * Low-dose beta-yanely * Coumadin dosing based on INR * Orthopedics recommends SNF transfer, case management to coordinate Current Visit: Yes Medical - PN: Qual - VTE Deep Vein Thrombosis/Pulmonary Embolism Present on Admission: No
--- NOTE | 2018-08-31 12:56 | XRay Report ---
CLINICAL INFORMATION: Recent trauma with hemarthrosis. Evaluate for fracture COMPARISON: 08/29/2018. FINDINGS: Moderate distention of the anterior and posterior extrasynovial fat pads compatible with hemarthrosis shows slight decrease. Elbow joint is normal in width and alignment. No definite fracture or other osseous abnormality identified. Mild periarticular soft tissue tissue swelling has decreased IMPRESSION: Moderate hemarthrosis compatible with an occult fracture. No fracture line yet identified Interpreted and Authenticated by: Valentin Richard 08/31/18
[2018-08-31] MEDS ORDERED: WARFARIN 4 MG TABLET PO ONE (15:00)
[2018-08-31] MEDS: SENNOSIDES 1 TABLET PO SCH (20:32)
[2018-08-31] MEDS: SENNOSIDES/DOCUSATE SODIUM 1 TAB TABLET PO SCH (20:32)
[2018-09-01 05:14] LABS: Hematocrit 28.2 % (36.0-48.0); Hemoglobin 9.5 g/dL (12.0-15.0); Mean Cell Volume 92.2 fL (80.0-100.0); Mean Corpuscular HGB Conc 33.7 g/dL (31.0-36.0); Mean Platelet Volume 9.3 fL (7.4-10.4); Platelet Count 192 K/mcL (140-440); RBC 3.06 M/mcL (4.00-5.20); Red Cell Distribution Width 13.4 % (11.5-14.5); WBC 10.3 K/mcL (4.5-11.0)
[2018-09-01 05:22] LABS: INR 2.1 (0.9-1.1); Prothrombin Time 23.1 sec (11.9-14.5)
[2018-09-01 05:48] LABS: ALT/SGPT 12 U/l (0-40); AST/SGOT 25 U/l (0-37); Albumin/Globulin Ratio 0.9 (1.0-2.3); Alkaline Phosphatase 56 U/L (39-117); Bilirubin,Direct 0.2 mg/dL (0.0-0.3); Bilirubin,Total 0.7 mg/dL (0.0-1.0); Blood Urea Nitrogen 20 mg/dl (8-23); Calcium 8.2 mg/dl (8.6-10.4); Carbon Dioxide 24 mmol/L (22-30); Chloride 101 mmol/L (96-108); Globulin 3.2 gm/dL (2.2-3.7); Glomerular Filtration Rate 68; Glucose 106 mg/dL (70-105); Lactate Dehydrogenase 201 U/L (94-250); Magnesium 2.1 mg/dL (1.6-2.5); Phosphorous 2.5 mg/dL (2.7-4.5); Potassium 4.1 mmol/L (3.3-5.1); Sodium 136 mmol/L (133-145); Triglycerides 68 mg/dl (<150); Uric Acid 5.7 mg/dL (2.5-8.0)
[2018-09-01] MEDS: HYDROcodone/APAP 5/325MG TABLET PO PRN (05:54)
--- NOTE | 2018-09-01 06:59 | Orthopedic Progress Note ---
Subjective Patient information: Note initiated : 09/01/18 at 6:56 am Service Date, if different from initiated Date: [] Patient: Emi Grissom 83 y/o F admitted on 08/29/18 for Fall. Chief Complaint: [] Interval history: No acute events overnight. No chest pain/shortness of breath. Pain is controlled, does increase with walking. Knee pain is better. Objective Vital signs: Vital Signs Temp Pulse Resp BP Pulse Ox 09/01/18 06:51 97.3 F 75 16 99/57 95 09/01/18 04:28 98.0 F 58 L 16 157/68 97 09/01/18 00:32 99.0 F 73 16 143/74 08/31/18 19:43 98.9 F 68 16 119/52 92 08/31/18 15:42 98 F 69 20 137/65 96 08/31/18 11:46 99.3 F H 20 146/71 90 Intake and Output 08/31/18 09/01/18 09/01/18 21:59 05:59 13:59 Intake Total 690 500 Output Total 550 425 Balance 690 -50 -425 Intake: Oral 690 500 Output: Void Amount 550 425 Other: Meal Dinner Percent of Meal Consumed 100% Urine Appearance Clear Urine Color Dark Yellow Weight 148 lb 8 oz Intake & Output: Intake & Output 08/31/18 09/01/18 09/01/18 21:59 05:59 13:59 Intake Total 690 500 Output Total 550 425 Balance 690 -50 -425 Weight 148 lb 8 oz Intake: Oral 690 500 Output: Void Amount 550 425 Other: Meal Dinner Percent of Meal Consumed 100% Urine Appearance Clear Urine Color Dark Yellow Weight bearing status: full Neurological exam IM: Yes neurovascular intact Additional Comments: silver dressing in place with with small area of strikethrough more distal. Extremities exam IM: Yes Foot pink and warm - Labs CBC & BMP: 09/01/18 04:05 09/01/18 04:05 Labs: Orthopedic Labs 09/01/18 08/31/18 08/30/18 04:05 04:15 06:44 POC PT PT 23.1 H 23.5 H 20.2 H POC INR INR 2.1 H 2.1 H 1.7 H 08/29/18 12:01 POC PT 20.8 H PT POC INR 1.8 H INR 09/01/18 08/31/18 08/30/18 04:05 04:15 06:44 Hgb 9.5 L 9.4 L 9.9 L Hct 28.2 L 27.8 L 29.7 L 08/29/18 12:01 Hgb 11.8 L Hct 36.0 Assessment and Plan - Narrative A/P Narrative: POD 3 status post right hip nataliia arthroplasty for displaced femoral neck fracture -- Weight bearing as tolerated with posterior hip precautions x6 weeks. ---- PT/OT, mobilization improving. -- Oral pain control -- INR therapeutic ---- h/h satable -- tolerating oral diet -- Prophy: IS, foot pumps, coumadin, ambulation -- Dispo: Think she would benefit from SNF in [place]. Will need ortho follow up in 10 days. OK to d/c from ortho standpoint once arrangements made. Placed rx for pain meds in chart.
[2018-09-01] MEDS: 0.9 % SODIUM CHLORIDE 10 ML SYRINGE IV SCH ×2 (07:03→15:05)
--- NOTE | 2018-09-01 07:51 | Operative Note ---
DATE OF OPERATION: 08/29/2018 PREOPERATIVE DIAGNOSIS: Right displaced femoral neck fracture. POSTOPERATIVE DIAGNOSIS: Right displaced femoral neck fracture. PROCEDURE PERFORMED: Right hip hemiarthroplasty. SURGEON: Maday Nash MD CHECKING CLERK: Leonard Del Angel PA-C. The PA's assistance was required for the safe and efficient completion of the entire case. This provider's expertise and technical skill were required throughout the case. The PA assisted with preoperative coordination, intraoperative retraction, wound closure, dressing and splint application, as well as postoperative documentation and care coordination. ANESTHESIA: General via LMA. IV FLUIDS: 1 liter lactated ringer. ESTIMATED BLOOD LOSS: 150 mL IV ANTIBIOTICS: 2 grams Ancef. I did use 1 gram TXA in the wound. IMPLANT: DePuy cemented stem size 5collared with a size 40 head, a standard neck and a 0 insert. PATHOLOGY/LAB: None. COMPLICATIONS: None apparent. INDICATIONS: The patient is a 83-year-old female who presented to the ER earlier today with complaint of right hip pain after [place] in [place]. She was found to have a right hip femoral neck fracture that was displaced. I discussed options with her at length with recommendation for hip hemiarthroplasty. Discussed procedure, risks associated with this to include need for revision, infection, dislocations, fractures that are particular to this case. She wished to proceed with surgery. DESCRIPTION OF PROCEDURE: The patient was taken to the preoperative holding room where site was verified and marked with the patient's input, subsequently brought to the operating room where she underwent successful anesthesia via LMA and then transferred to the operating room table and placed in the lateral decubitus position with the right side up. She had a cutout for her arm instead of axillary roll and was secured with a post on the anterior just superior to the pubic symphysis and the posterior bar as well. She was then prepped and draped in the usual sterile fashion with ChloraPrep. Surgical timeout was performed verifying patient, correct procedure being performed, and correct extremity being operated on, and everybody was in agreement. I created approximately a 10 to 12 cm incision over the proximal portion of greater trochanter extending curvilinear posteriorly. Skin was sharply incised. Hemostasis was obtained with electrocautery device down to the tensor fascia mumtaz. This was incised over the posterior 1/3 of the greater trochanter. This was incised distally and the more superior over the muscle belly in line with the fibers. This exposed the posterior aspect of the femoral neck. The external rotators of the neck were elevated as well as a piriformis and tagged. Subperiosteal elevation down to the level of the lesser tuberosity was completed. The capsule was identified and a capsulotomy was made in line with the femoral neck. This was tagged along with piriformis being tagged. At this point, we made our femoral neck cut, which was 15 mm from the lesser tuberosity. This bony debris was removed utilizing a small rongeur and then utilizing a corkscrew device to remove the femoral head- normal appearance without pathology. This was sized on the back table, which was 48. All bony debris removed from the acetabulum and from the soft tissues surrounding the capsule. The wound was then copiously irrigated with normal saline and IrriSept. At this point, we placed a femoral neck elevator, utilizing the box sealing machine catcher, canal finder and a lateralizer. Broached up to a size 5 matching the version to the posterior cortex of the femoral neck. A size 5 had good overall fit; however, given her preoperative radiographs of poor bone quality- close to [place] C, elected to proceed with cement fixation for her. At this point I trialed with a standard neck and 0 offset which reduced the joint and was stable and recreated the length of the leg. I was happy with the overall construct. These implants were then removed. Cement was being mixed on the back table. I placed a cement restrictor distally in the femur approximately 15 to 15.5 cm. The brush was utilized to brush the canal and then pulse lavaged the canal, placed a sponge sucker in the canal to keep it dry. I placed a sponge within the acetabulum as well. Once the cement was ready filled and pressurized the canal. Placed the stem and held until cement hardened. Impacted the femoral head and reduced the joint after removing the sponges. The reduction felt stable with a sidelying position of 30 30 as well as hip flexion and internal rotation greater than 60 degrees. She had full extension and the limb lengths appeared to be near symmetric. I was happy with the overall construct. The wound again was irrigated. The posterior capsule was closed with interrupted Ethibond sutures and the piriformis tagged back to the greater trochanter via soft tissue repair. Wound was irrigated again. The tensor fascia mumtaz was closed initially with #1 Vicryl in interrupted fashion and then ran with a barbed suture distally and proximally oversewing our Vicryl sutures. The muscle portion was also closed in a running fashion more proximal within the wound. The wound was again irrigated. The subcutaneous tissue was closed in layers with 2-0 Vicryl and 3-0 Vicryl subcutaneously and ava for skin. The wound was then cleaned and dried. Xeroform along with fluffs and Met[place] tape were applied. The patient was then awoken from anesthesia, placed into a wedge pillow and transferred to the PACU in stable condition. PLAN: The patient will be admitted back to the floor for postoperative pain control and therapy. Once stable, she will have to transfer back to [facility] at that time. DLW:vi Job ID: [id number] Doc ID: [id number] Maday HASTINGS
[2018-09-01 08:26] LABS: Eosinophils % (Manual) 3 % (0-7); Lymphocytes % 16 % (15-49); Monocytes % (Manual) 6 % (1-12); Platelet Estimate NORMAL (NORMAL); RBC Morphology NORMAL (NORMAL); Segmented Neutrophils % 75 % (38-78)
[2018-09-01] MEDS: METOPROLOL TARTRATE 25 MG TABLET PO SCH (10:08)
[2018-09-01] MEDS: DOCUSATE SODIUM 100 MG CAPSULE PO SCH (10:09)
[2018-09-01] MEDS: MULTIVIT,THER IRON,CA,FA & MIN 1 TABLET PO SCH (10:09)
[2018-09-01] MEDS: DILTIAZEM 180 MG CAP.XL.24H PO SCH (10:09)
[2018-09-01] MEDS ORDERED: CEPHALEXIN 250 MG CAPSULE PO SCH (12:16)
[2018-09-01] MEDS ORDERED: CEPHALEXIN 500 MG CAPSULE PO SCH (13:00)
[2018-09-01] MEDS ORDERED: WARFARIN 4 MG TABLET PO ONE (14:00)
--- NOTE | 2018-09-01 14:28 | Discharge Summary ---
Medical - DS: Prov Patient information: Note initiated : 09/01/18 at 2:25 pm Service Date, if different from initiated Date: [] Patient: Emi Grissom 83 y/o F admitted on 08/29/18 for Fall. Chief Complaint: [] Date of admission: 08/29/18 15:05 Discharge date: 09/01/18 Consults: 08/29/18 Consult to Physician [CONS] Stat Comment: Consulting Provider: Adria Marcus Reason For Exam: Physician to Consult Consult to Physician [CONS] Stat Comment: Consulting Provider: Maday Nash Reason For Exam: Physician to Consult Discharging clinician: Ilya Dimas Medical - DS: Meds - Discharge Medications Prescriptions: Cephalexin [Keflex] 500 mg PO BID #6 cap HYDROcodone/APAP 5/325MG [Cotton 5-325Mg] 1 tab PO Q4HP PRN #40 tab PRN Reason: Pain Level 3-6 Methocarbamol [Robaxin] 500 mg PO Q6HP PRN #25 tab PRN Reason: Muscle Spasm Active and Home Medications: Home Medications Diltiazem HCl [Diltiazem ER] 180 mg PO DAILY 08/29/18 [History Confirmed 08/29/18 Last Taken Unknown] Warfarin [Coumadin] 4 mg PO DAILY 08/29/18 [History Confirmed 08/29/18 Last Taken Unknown] HYDROcodone/APAP 5/325MG [Cotton 5-325Mg] 1 tab PO Q4HP PRN #40 tab 09/01/18 [Rx Last Taken Unknown] Methocarbamol [Robaxin] 500 mg PO Q6HP PRN #25 tab 09/01/18 [Rx Last Taken Unknown] Medical - DS: Hosp Hospital course: Ms. Grissom is a 80 year old F was visiting [place] on a cruise when she tripped and bathroom and fell sustaining injury to her right hip. Initial evaluation in the ER revealed right hip fracture. Dr. Nash orthopedics were consulted and requested hospitalist service to admit patient while patient will undergo operative intervention later this evening. Initial work-up in the ER was essentially unremarkable. At the time of evaluation patient is accompanied with her friend Jourdan. She is able to answer most of the questions. She denies lightheadedness dizziness, chest pain or unilateral weakness. She attributes fall to tripping and getting off balance. She denies loss of consciousness. She denies prior similar episodes or falls. She appears very anxious and in pain. She endorses to history of atrial fibrillation but denies history of coronary artery disease, CVA, diabetes or hypertension. She has been fairly healthy and avid skier until she had a left knee replaced. 08/30-patient doing remarkably well postop. Improved postoperative pain. Will undergo PT OT. Per orthopedics patient will require SNF transfer. No family at bedside. Minimally anxious. Start regular diet. Overnight systolics around 160 requiring hydralazine. Restart Coumadin/diltiazem. 08/31-patient doing well. No overnight events. Ongoing physical therapy. Continue diet and nutrition support. Anticipate SNF transfer in 24 hours for continued posthospitalization and postoperative rehab. No family at bedside. No concerns expressed to nursing staff. INR 2.1. Urine culture gram-negative daisha 09/01 Patient seen and examined, doing well with physical therapy still has pain at the site of surgery well otherwise no complaints. Urine culture growing E. coli we will treat with 3-day course of Keflex. Patient is deemed stable from orthopedic standpoint for discharge. Patient will be discharged to a rehab center Discharge diagnosis: hip fracture - Time Spent with Patient Total time spent providing and/or coordinating discharge services: Greater than 30 minutes Medical - DS: Exam - Constitutional Vitals: Vital Signs Temp Pulse Resp BP Pulse Ox 09/01/18 12:00 78 09/01/18 10:55 97.6 F 78 16 110/60 96 09/01/18 08:00 75 09/01/18 07:10 75 09/01/18 06:51 97.3 F 75 16 99/57 95 09/01/18 04:28 98.0 F 58 L 16 157/68 97 09/01/18 00:32 99.0 F 73 16 143/74 08/31/18 19:43 98.9 F 68 16 119/52 92 08/31/18 15:42 98 F 69 20 137/65 96 Intake and Output 09/01/18 09/01/18 09/01/18 05:59 13:59 21:59 Intake Total 500 600 Output Total 550 425 Balance -50 175 Intake: Oral 500 600 Output: Void Amount 550 425 Other: Meal Breakfast Percent of Meal Consumed 100% Urine Appearance Clear Urine Color Dark Yellow Stool Size Moderate Stool Color Brown Stool Consistency Normal for Patient # Voids 2 Additional comments: Constitutional; Afebrile, cooperative, alert, not in distress. Eyes- No icterus, , No periorbital swelling Ears- Ext ear normal, hearing normal to conversation. Neck- Midline trachea, supple Respiratory system: Air Entry equal on both sides, No crackles or wheezing, no rhonchi. CVS- Rate rhythm regular, S1,S2 heard, no gallop, no rub. Abdomen- Soft nontender abdomen, no organomegaly, no tenderness, no guarding or rigidity, FLUID DYNAMICIST- AOOx3, moving all extremities, no gross focal deficit noted. Medical - DS: Data Labs on day of discharge: Labs from last 24 hours 09/01/18 09/01/18 09/01/18 04:05 04:05 04:05 WBC 10.3 RBC 3.06 L Hgb 9.5 L Hct 28.2 L MCV 92.2 MCH 31.0 MCHC 33.7 RDW 13.4 Plt Count 192 MPV 9.3 Total Counted 100 Seg Neutrophils % 75 Band Neutrophils % Not Reportable Lymphocytes % 16 Monocytes % (Manual) 6 Eosinophils % (Manual) 3 Platelet Estimate Normal RBC Morphology Normal PT 23.1 H INR 2.1 H Sodium 136 Potassium 4.1 Chloride 101 Carbon Dioxide 24 Anion Gap 11.0 BUN 20 Creatinine 0.8 GFR Calculation 68 Glucose 106 H Uric Acid 5.7 Calcium 8.2 L Phosphorus 2.5 L Magnesium 2.1 Total Bilirubin 0.7 Direct Bilirubin 0.2 GGT 20 AST 25 ALT 12 Alkaline Phosphatase 56 Lactate Dehydrogenase 201 Total Protein 6.2 Albumin 3.0 L Globulin 3.2 Albumin/Globulin Ratio 0.9 L Triglycerides 68 Medical - DS: A/P - Patient/Caregiver Discharge Instructions Activity: as per physical therapy, increase activity as tolerated Diet: Cardiac Additional Instructions: Follow-up with orthopedics in 10 days Take Coumadin as prescribed, check INR in 3 days, dose of Coumadin to be adjusted by prison medical instructor target INR 2-3 Take Keflex for 3 days, 500 mg twice a day Go to the emergency room if chest pain shortness of breath fever or any other acute concern Prescriptions: HYDROcodone/APAP 5/325MG [C[place] 5-325Mg] 1 tab PO Q4HP PRN #40 tab PRN Reason: Pain Level 3-6 Methocarbamol [Robaxin] 500 mg PO Q6HP PRN #25 tab PRN Reason: Muscle Spasm - Follow up Plan Follow up with: Maday Nash MD [Physician] - Disposition: Xfer SNF Prognosis: Fair Rehab Potential: Fair I certify that the patient requires SNF services: Yes Overall status at discharge: patient is progressing back to baseline Medical - DS: Qual - VTE Deep Vein Thrombosis/Pulmonary Embolism Present on Admission: No
== END 2018-09-01 15:45 | DRG 470 ==
LOC: ED 11:17 → MEDSUR 15:00 → EDBD 15:05 → MEDSUR 15:05
PROVIDERS: ADMIT Internal Medicine; ATTEND Internal Medicine
PROC: HEMIHIP (2018-08-29 17:08)